=== PATIENT | female | born 1945 | race Caucasian/White ===

== ENCOUNTER 2018-01-27 14:23 | Observation (INO) | payer OTHER ==
[2018-01-27] MEDS: NITROGLYCERIN (SL) 0.4 MG TAB SL (18:07)
[2018-01-27] MEDS: NITROGLYCERIN 2% 1 GM OINT PKT TD (18:07)
[2018-01-27] MEDS: ASPIRIN 81 MG TAB PO (18:07)
[2018-01-27 18:08] LABS: ADD MAN DIFF? NO
[2018-01-27 18:12] LABS: BASOPHIL # 0.1 10^3/ul (0.0-0.1); BASOPHILS % 0.7 % (0.0-2.0); EOSINOPHILS # 0.3 10^3/ul (0.0-0.5); HEMATOCRIT 34.3 % (37.0-47.0); LYMPHOCYTES # 3.4 10^3/ul (0.8-2.9); LYMPHOCYTES % 37.3 % (15.0-51.0); MEAN CORPUSCULAR HEMOGLOBIN 26.5 pg (29.0-33.0); MEAN CORPUSCULAR HGB CONC 32.1 g/dl (32.0-37.0); MEAN CORPUSCULAR VOLUME 82.7 fl (82.0-101.0); MEAN PLATELET VOLUME 10.2 fl (7.4-10.4); MONOCYTE # 0.5 10^3/ul (0.3-0.9); MONOCYTES % 5.2 % (0.0-11.0); NEUTROPHIL # 4.8 10^3/ul (1.6-7.5); NEUTROPHILS % 53.4 % (39.0-77.0); PLATELET COUNT 280 10^3/UL (140-415); RED BLOOD COUNT 4.15 10^6/ul (4.20-5.40); RED CELL DISTRIBUTION WIDTH 14.7 % (11.5-14.5)
[2018-01-27 18:30] LABS: ANION GAP 14 (8-16); BLOOD UREA NITROGEN 14 mg/dl (7-20); CALCIUM 9.1 mg/dl (8.4-10.2); CARBON DIOXIDE 25 mmol/L (21-31); CHLORIDE 104 mmol/L (97-110); CREATININE 1.01 mg/dl (0.44-1.00); GLUCOSE 130 mg/dl (70-220); POTASSIUM 3.6 mmol/L (3.5-5.1); SODIUM 139 mmol/L (135-144)
[2018-01-27 18:42] LABS: TROPONIN-I < 0.012 ng/ml (0.000-0.120)
[2018-01-27] MEDS ORDERED: ONDANSETRON 4 MG INJ IV ×2 (20:00)
[2018-01-27] MEDS: ACETAMINOPHEN 325 MG TAB PO (20:20)
[2018-01-28 01:54] LABS: CREATINE KINASE 99 IU/L (23-200)
[2018-01-28 02:07] LABS: CK INDEX 1.5; CK-MB 1.48 ng/ml (0.0-2.4); TROPONIN-I < 0.012 ng/ml (0.000-0.120)
[2018-01-28] MEDS: ZOLPIDEM 5 MG TAB PO (02:46)
[2018-01-28 06:24] LABS: CREATINE KINASE 86 IU/L (23-200)
[2018-01-28 06:27] LABS: CK INDEX 1.5; CK-MB 1.26 ng/ml (0.0-2.4); TROPONIN-I < 0.012 ng/ml (0.000-0.120)
[2018-01-28] MEDS: ASPIRIN (EC) 81 MG TAB PO (08:49)
[2018-01-28] MEDS ORDERED: ACETAMINOPHEN 325 MG TAB PO (09:00)
[2018-01-28] MEDS ORDERED: ALPRAZOLAM 0.25 MG TAB PO (09:30)
[2018-01-28] MEDS: PANTOPRAZOLE (EC) 40 MG TAB PO (09:51)
[2018-01-28] MEDS: ACETAMINOPHEN 325 MG TAB PO (09:51)
[2018-01-28] MEDS: REGADENOSON 0.4 MG/5 ML SYG (12:32)
[2018-01-28 14:29] LABS: TROPONIN-I < 0.012 ng/ml (0.000-0.120)
[2018-01-28] MEDS: METOPROLOL 25 MG TAB PO (15:24)
[2018-01-28] MEDS ORDERED: ATORVASTATIN 80 MG TAB PO (21:00)
[2018-01-29] MEDS ORDERED: ASPIRIN (EC) 81 MG TAB PO (09:00)
== END 2018-01-28 16:00 | disposition home or self-care (01) ==
LOC: 6WM 19:31 → E/R 14:23
DX: R07.89 Other chest pain (principal); I10 Essential (primary) hypertension; I25.10 Atherosclerotic heart disease of native coronary artery without angina pectoris; M19.90 Unspecified osteoarthritis, unspecified site; K21.9 Gastro-esophageal reflux disease without esophagitis; I25.2 Old myocardial infarction; Z79.82 Long term (current) use of aspirin; Z88.0 Allergy status to penicillin
CPT/HCPCS: 36415; 71045; 78452; 80048; 82550; 82553; 84484; 85025; 93005; 93017; 93306; 96374; 99285-25; G0378